=== PATIENT | male | born 1990 | race African-American/Black ===

== ENCOUNTER 2017-06-25 09:55 | Emergency (ER) | payer SELFPAY ==
[2017-06-25 10:03] VITALS: BP 127/78
[2017-06-25] MEDS ORDERED: KETOROLAC TROMETHAMINE 60 MG/2 ML SDV IM ONE (12:07)
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
--- NOTE | 2017-06-25 13:10 | RADIOLOGY REPORT (SQ) ---
EXAM DESCRIPTION: L SPINE WHOLE COMPLETED DATE/TIME: 06/25/2017 12:38 pm REASON FOR STUDY: low back pain x 1 week COMPARISON: None. NUMBER OF VIEWS: Five views including obliques. TECHNIQUE: AP, lateral, oblique, and sacral radiographic images acquired of the lumbar spine. LIMITATIONS: None. FINDINGS: MINERALIZATION: Normal. SEGMENTATION: Normal. No transitional anatomy. ALIGNMENT: Normal. VERTEBRAE: Maintained height. No fracture or worrisome bone lesion. DISCS: Preserved height. No significant osteophytes or end plate irregularity. POSTERIOR ELEMENTS: Bilateral facet arthropathy at L4-5 and L5-S1. No pars defects HARDWARE: None in the spine. PARASPINAL SOFT TISSUES: Normal. PELVIS: Intact as visualized. No fractures or worrisome bone lesions. SI joints intact. OTHER: No other significant finding. IMPRESSION: Mild lower lumbar facet arthropathy. TECHNICAL DOCUMENTATION: JOB ID: [id number] [employer]- All Rights Reserved Reading location - IP/workstation name: [email or web address]
== END 2017-06-25 12:53 | disposition left against medical advice (07) ==
LOC: ER 09:55
DX: J06.9 Acute upper respiratory infection, unspecified (principal); B97.89 Other viral agents as the cause of diseases classified elsewhere; M12.9 Arthropathy, unspecified; M54.5 Low back pain; R05 Cough; R51 Headache; J34.89 Other specified disorders of nose and nasal sinuses; F17.200 Nicotine dependence, unspecified, uncomplicated
CPT/HCPCS: 99283; 96372; 72110; J1885

== ENCOUNTER 2017-09-28 03:50 | Emergency (ER) | payer SELFPAY ==
[2017-09-28] MEDS ORDERED: LIDOCAINE 1%/EPINEPHRINE INJ 20 ML VIAL INJ ONE (04:03)
[2017-09-28] MEDS ORDERED: DIPH/PERTUSS(ACELL)/TETANUS VAC/PF 0.5 ML SYR (>=10YO) IM ONE (04:06)
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
== END 2017-09-28 05:29 | disposition home or self-care (01) ==
LOC: ER 03:50
PROC: 0HQDXZZ Repair Right Lower Arm Skin, External Approach (ICD-10-PCS; principal; 2017-09-28)
PROC: 0HQBXZZ Repair Right Upper Arm Skin, External Approach (ICD-10-PCS; 2017-09-28)
DX: S41.111A Laceration without foreign body of right upper arm, initial encounter (principal); W26.0XXA Contact with knife, initial encounter
CPT/HCPCS: 99283

== ENCOUNTER 2017-10-28 07:59 | Emergency (ER) | payer SELFPAY ==
[2017-10-28] MEDS ORDERED: LIDOCAINE 1% INJ-PF (10 MG/ML) 30 ML SDV INJ ONE (08:39)
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
[2017-10-28 09:43] VITALS: BP 102/53
== END 2017-10-28 09:59 | disposition home or self-care (01) ==
LOC: ER 07:59
PROC: 0HQ0XZZ Repair Scalp Skin, External Approach (ICD-10-PCS; principal; 2017-10-28)
DX: S01.01XA Laceration without foreign body of scalp, initial encounter (principal); X99.0XXA Assault by sharp glass, initial encounter
CPT/HCPCS: 99283; 70450; 70486; 72125; 12002; J3490

== ENCOUNTER 2017-11-09 11:39 | Emergency (ER) | payer SELFPAY ==
[2017-11-09 11:56] VITALS: BP 117/73
== END 2017-11-09 12:40 | disposition left against medical advice (07) ==
LOC: ER 11:39
DX: Z53.21 Procedure and treatment not carried out due to patient leaving prior to being seen by health care provider (principal)

== ENCOUNTER 2017-11-10 10:45 | Emergency (ER) | payer SELFPAY ==
[2017-11-10 10:52] VITALS: BP 126/71
--- NOTE | 2017-11-10 11:15 | ER Document Report ---
HPI - HPI Patient complains to provider of: staple removal Onset: Other - 2 wk Onset/Duration: Better Quality of pain: No pain Pain Level: Denies Context: Patient had 5 clair placed on 10/28/2017. Patient is here for staple removal today. Patient denies any problems with his scalp laceration. Exacerbated by: Denies Relieved by: Denies Similar symptoms previously: No Recently seen / treated by doctor: Yes - ROS ROS below otherwise negative: Yes Systems Reviewed and Negative: Yes All other systems reviewed and negative - GASTROINTESTINAL Gastrointestinal: DENIES: Nausea - DERM Skin Color: Normal Skin Problems: Laceration Past Medical History - General Information source: Patient - Social History Smoking Status: Current Every Day Smoker Smoking Education Provided: Yes Frequency of alcohol use: None Drug Abuse: None Occupation: Car detailing Family History: Reviewed & Not Pertinent - Medical History Medical History: Negative Renal/ Medical History: Denies: Hx Peritoneal Dialysis Past Surgical History: Reports: Hx Abdominal Surgery - hernia operation, Hx Appendectomy - Immunizations Hx Diphtheria, Pertussis, Tetanus Vaccination: - unknown Vertical Provider Document - CONSTITUTIONAL Agree With Documented VS: Yes Exam Limitations: No Limitations General Appearance: WD/WN, No Apparent Distress - INFECTION CONTROL TRAVEL OUTSIDE OF THE [place] IN LAST 30 DAYS: No - HEENT HEENT: Normocephalic Notes: Intact clair to anterior scalp area, wound edges approximated - NECK Neck: Normal Inspection - RESPIRATORY Respiratory: No Respiratory Distress - MUSCULOSKELETAL/EXTREMETIES Musculoskeletal/Extremeties: MAEW - NEURO Level of Consciousness: Awake, Alert, Appropriate Motor/Sensory: No Motor Deficit - DERM Integumentary: Warm, Dry, Laceration - Stapled laceration to anterior scalp area Course - Vital Signs Vital signs: Temp Pulse Resp BP Pulse Ox 97.9 F 80 18 126/71 H 100 11/10/17 10:51 11/10/17 10:51 11/10/17 10:51 11/10/17 10:51 11/10/17 10:51 Discharge - Discharge Clinical Impression: Removal of clair Condition: Stable Disposition: HOME, SELF-CARE Instructions: Staple Removal ([facility]) Forms: Smoking Cessation Education, Return to Work Referrals: [facility] [Provider Group] - Follow up as needed
== END 2017-11-10 11:24 | disposition home or self-care (01) ==
LOC: ER 10:45
DX: S01.01XD Laceration without foreign body of scalp, subsequent encounter (principal); X58.XXXD Exposure to other specified factors, subsequent encounter; F17.200 Nicotine dependence, unspecified, uncomplicated

== ENCOUNTER 2018-02-20 08:25 | Emergency (ER) | payer SELFPAY ==
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
[2018-02-20] MEDS ORDERED: BUPIVACAINE HCL 0.5 % INJ/PF 30 ML SDV INJ ONE (10:15)
[2018-02-20] MEDS ORDERED: LIDOCAINE 1% INJ (10 MG/ML) 10 ML MDV INJ ONE (10:15)
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
[2018-02-20 11:39] VITALS: BP 125/65
== END 2018-02-20 11:39 | disposition home or self-care (01) ==
LOC: ER 08:25
PROC: 0CQ0XZZ Repair Upper Lip, External Approach (ICD-10-PCS; principal; 2018-02-20)
DX: S01.511A Laceration without foreign body of lip, initial encounter (principal); S01.512A Laceration without foreign body of oral cavity, initial encounter; Y04.0XXA Assault by unarmed brawl or fight, initial encounter; Y92.89 Other specified places as the place of occurrence of the external cause; F17.210 Nicotine dependence, cigarettes, uncomplicated
CPT/HCPCS: 99283; 12052; J3490

== ENCOUNTER 2018-02-25 09:19 | Emergency (ER) | payer SELFPAY ==
[2018-02-25 09:26] VITALS: BP 100/61
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
== END 2018-02-25 10:08 | disposition home or self-care (01) ==
LOC: ER 09:19
DX: S01.511D Laceration without foreign body of lip, subsequent encounter (principal); Y09 Assault by unspecified means; F17.200 Nicotine dependence, unspecified, uncomplicated

== ENCOUNTER 2018-04-10 05:29 | Emergency (ER) | payer SELFPAY ==
--- NOTE | 2018-04-10 07:10 | ER Document Report ---
ED Cardiac - General Chief Complaint: Chest Wall Pain Stated Complaint: CHEST TIGHTNESS Time Seen by Provider: 04/10/18 06:07 Notes: 27-year-old male presents to the emergency part complaining of some left-sided chest discomfort. He states is worse when he moves or touches the left side of his chest. States he just started working out for a New Year's resolution. He began noticing the pain on the left side of his sternum. Denies any fever chills or cough. States he does smoke cigarettes and marijuana pretty heavily. He denies black bloody or tarry stools denies falls or trauma. States to be doing a lot of pull-ups lately. Denies any history of blood clots. Denies shortness of breath. Denies diaphoresis denies nausea. Other than marijuana denies any cocaine abuse. The patient describes the pain as sharp and severe when he moves but at rest it is negligible TRAVEL OUTSIDE OF THE [place] IN LAST 30 DAYS: No - Related Data Allergies/Adverse Reactions: No Known Allergies Allergy (Verified 02/25/18 09:20) Past Medical History - Social History Smoking Status: Current Every Day Smoker Frequency of alcohol use: None Family History: Reviewed & Not Pertinent Patient has suicidal ideation: No Patient has homicidal ideation: No Renal/ Medical History: Denies: Hx Peritoneal Dialysis Past Surgical History: Reports: Hx Abdominal Surgery - hernia operation, Hx Appendectomy - Immunizations Hx Diphtheria, Pertussis, Tetanus Vaccination: - unknown Review of Systems - Review of Systems Constitutional: denies: Chills, Fever Cardiovascular: denies: Chest pain, Palpitations, Heart racing, Orthopnea, Dyspnea, Edema Respiratory: Hurts to breathe. denies: Cough, Short of breath Gastrointestinal: denies: Nausea -: Yes All other systems reviewed and negative Physical Exam - Vital signs Vitals: Temp Pulse Resp BP Pulse Ox 98.4 F 79 20 125/55 L 99 04/10/18 05:33 04/10/18 05:33 04/10/18 05:33 04/10/18 05:33 04/10/18 05:33 - Notes Notes: GENERAL_APPEARANCE: well_nourished, alert, cooperative VITALS: reviewed, see vital signs table. HEAD: no_swelling\tenderness on the head. EYES: conjunctiva_clear. NOSE: no_nasal_discharge. MOUTH: (-)decreased moisture. THROAT: no_tonsilar_inflammation, no_airway_obstruction. no_lymphadenopathy NECK: supple, no_neck_tenderness, (-)thyromegaly. BACK: no_back_tenderness. CHEST_WALL: Left parasternal tenderness consistent with costochondritis LUNGS: no_wheezing, no_rales, no_rhonchi, (-)accessory muscle use, good air exchange bilateral. HEART: normal_rate, normal_rhythm, normal_S1, normal_S2, (-)S3, (-)S4, no_murmur, no_rub. ABDOMEN: normal_BS, soft, no_abd_tenderness, (-)guarding, (-)rebound, no_organomegaly, no_abd_masses. EXTREMITIES: strength 5/5 in all_extremities, good pulses in all_extremities, no_swelling\tenderness in the extremities, no_edema. SKIN: warm, dry, good_color, no_rash. MENTAL_STATUS: speech_clear, oriented_X_3, normal_affect, responds_appropriately to questions. Course - Re-evaluation Re-evalutation: 04/10/18 07:09 Patient presents with history and clinical findings consistent with costochondritis. My suspicion is low for pulmonary embolism he is not tachycardic tachypneic he does not have oxygen requirements. He is PERC negative. Risk for ACS is low. Patient has reproducible tenderness along the left chest wall. No crepitus no subcu emphysema chest x-ray and EKG were normal we will put him on some NSAIDs has been working out heavier due to the New Year's resolution. 04/10/18 08:46 EKG and chest x-ray are reassuring. My suspicion is that the patient has costochondritis especially due to the increase activity with working out for the new year. I will place him on NSAIDs for home. Work with him about smoking cessation. - Vital Signs Vital signs: Temp Pulse Resp BP Pulse Ox 98.4 F 79 17 130/100 H 100 04/10/18 05:33 04/10/18 05:33 04/10/18 06:01 04/10/18 06:01 04/10/18 06:01 - Diagnostic Test Radiology reviewed: Image reviewed Radiology results interpreted by me: 04/10/18 08:45 Chest X-Ray 04/10/18 06:32 IMPRESSION: NO ACUTE RADIOGRAPHIC FINDING IN THE CHEST. - EKG Interpretation by Me EKG shows normal: Sinus rhythm Rate: Normal Rhythm: NSR Additional EKG results interpreted by me: 04/10/18 08:12 Mild early repolarization no acute ST abnormalities noted Discharge - Discharge Clinical Impression: Costochondritis, acute Condition: Good Disposition: HOME, SELF-CARE Instructions: Anti-Inflammatory Medication ([facility]), Chest Wall Pain ([facility]), Costochondritis ([facility]) Prescriptions: Diclofenac Sodium [Voltaren] 75 mg PO BID PRN #20 tablet.dr LOZA Reason: Pain Scale Of 5
--- NOTE | 2018-04-10 08:02 | EKG REPORT ---
SEVERITY:- NORMAL ECG - SINUS RHYTHM ST ELEV, PROBABLE NORMAL EARLY REPOL PATTERN : Confirmed by: Gurmeet Estrada MD 10-Apr-2018 08:02:15
--- NOTE | 2018-04-10 08:32 | RADIOLOGY REPORT (SQ) ---
EXAM DESCRIPTION: CHEST 2 VIEWS COMPLETED DATE/TIME: 04/10/2018 8:15 am REASON FOR STUDY: chest pain COMPARISON: None. EXAM PARAMETERS: NUMBER OF VIEWS: two views TECHNIQUE: Digital Frontal and Lateral radiographic views of the chest acquired. RADIATION DOSE: NA LIMITATIONS: none FINDINGS: LUNGS AND PLEURA: No opacities, masses or pneumothorax. No pleural effusion. MEDIASTINUM AND HILAR STRUCTURES: No masses or contour abnormalities. HEART AND VASCULAR STRUCTURES: Heart normal size. No evidence for failure. BONES: No acute findings. HARDWARE: None in the chest. OTHER: No other significant finding. IMPRESSION: NO ACUTE RADIOGRAPHIC FINDING IN THE CHEST. TECHNICAL DOCUMENTATION: JOB ID: [id number] [employer]- All Rights Reserved Reading location - IP/workstation name: [facility] [email or web address]
[2018-04-10 09:05] VITALS: BP 107/87
== END 2018-04-10 09:04 | disposition home or self-care (01) ==
LOC: ER 05:29
DX: M94.0 Chondrocostal junction syndrome [Tietze] (principal); R07.89 Other chest pain; F17.210 Nicotine dependence, cigarettes, uncomplicated
CPT/HCPCS: 71046; 93005; 93010; 99284

== ENCOUNTER 2018-06-21 12:52 | Emergency (ER) | payer SELFPAY ==
[2018-06-21] MEDS ORDERED: NORMAL SALINE 1000 ML 1,000 ML IV PRN (13:43)
[2018-06-21] MEDS ORDERED: ONDANSETRON HCL INJ/PF 4 MG/2 ML SDV IV ONE (13:44)
--- NOTE | 2018-06-21 13:45 | ER Document Report ---
ED Medical Screen (RME) - General Chief Complaint: Vomiting Stated Complaint: VOMITING Time Seen by Provider: 06/21/18 13:40 TRAVEL OUTSIDE OF THE [place] IN LAST 30 DAYS: No - HPI Notes: 06/21/18 13:44 Patient states drinks every other day coming in after throwing up small amount of blood. Patient states he was initially dry heaving and then later started throwing up blood. Patient otherwise looks to be in no obvious distress upon my evaluation states he did drink more alcohol last night he normally does. - Related Data Allergies/Adverse Reactions: No Known Allergies Allergy (Verified 06/21/18 12:53) Past Medical History Renal/ Medical History: Denies: Hx Peritoneal Dialysis Past Surgical History: Reports: Hx Abdominal Surgery - hernia operation, Hx Appendectomy - Immunizations Hx Diphtheria, Pertussis, Tetanus Vaccination: - unknown Review of Systems - Review of Systems Gastrointestinal: Vomiting Physical Exam - Vital signs Vitals: Temp Pulse Resp BP Pulse Ox 98.3 F 72 16 125/64 99 06/21/18 13:07 06/21/18 13:07 06/21/18 13:07 06/21/18 13:07 06/21/18 13:07 - Abdominal Inspection: Normal Distension: No distension Bowel sounds: Normal Tenderness: Nontender Organomegaly: No organomegaly Course - Re-evaluation Re-evalutation: 06/21/18 13:44 We will check CBC basic laboratory studies hydrate the patient will give Protonix patient otherwise looks stable - Vital Signs Vital signs: Temp Pulse Resp BP Pulse Ox 98.3 F 72 16 125/64 99 06/21/18 13:07 06/21/18 13:07 06/21/18 13:07 06/21/18 13:07 06/21/18 13:07
[2018-06-21 14:33] LABS: ABSOLUTE LYMPHOCYTES (AUTO) 1.6 10^3/uL (0.5-4.7); ABSOLUTE MONOCYTES (AUTO) 0.4 10^3/uL (0.1-1.4); ABSOLUTE NEUT (AUTO) 11.9 10^3/uL (1.7-8.2); BASOPHILS % (AUTO) 0.1 % (0-2); EOSINOPHILS % (AUTO) 0.1 % (0-6); HEMATOCRIT 47.4 % (37.9-51.0); HEMOGLOBIN 15.7 g/dL (13.5-17.0); LYMPHOCYTES % (AUTO) 11.8 % (13-45); MEAN CORPUSCULAR HEMOGLOBIN 26.6 pg (27.0-33.4); MEAN CORPUSCULAR HGB CONC 33.1 g/dL (32.0-36.0); MEAN CORPUSCULAR VOLUME 81 fl (80-97); MONOCYTES % (AUTO) 2.5 % (3-13); PLATELET COUNT 139 10^3/uL (150-450); RED BLOOD COUNT 5.89 10^6/uL (4.35-5.55); RED CELL DISTRIBUTION WIDTH 15.6 % (11.5-14.0); SEGMENTED NEUTROPHILS % (AUTO) 85.5 % (42-78); TOTAL CELLS COUNTED % (AUTO) 100 %; WHITE BLOOD COUNT 13.9 10^3/uL (4.0-10.5)
[2018-06-21 14:47] LABS: ALANINE AMINOTRANSFERASE 53 U/L (21-72); ALBUMIN 5.1 g/dL (3.5-5.0); ALCOHOL 28 mg/dL (NONE DETECTED); ALKALINE PHOSPHATASE 102 U/L (38-126); ANION GAP 19 (5-19); ASPARTATE AMINO TRANSFERASE 61 U/L (17-59); BILIRUBIN,DIRECT 0.2 mg/dL (0.0-0.4); BILIRUBIN,TOTAL 0.5 mg/dL (0.2-1.3); BLOOD UREA NITROGEN 16 mg/dL (7-20); CALCIUM 10.1 mg/dL (8.4-10.2); CARBON DIOXIDE 23 mmol/L (22-30); CHLORIDE 101 mmol/L (98-107); GLUCOSE 76 mg/dL (75-110); LIPASE 162.6 U/L (23-300); SODIUM 143.2 mmol/L (137-145); TOTAL PROTEIN 9.1 g/dL (6.3-8.2)
--- NOTE | 2018-06-21 14:58 | ER Document Report ---
ED General - General Chief Complaint: Vomiting Stated Complaint: VOMITING Time Seen by Provider: 06/21/18 13:40 Notes: 27-year-old male with no past medical history presents for blood in his vomit. Patient states drinks Suhail most days and was having retching vomiting this morning, then was dry heaving and brought up a small amount of blood. Patient states he was drinking more last night than he usually does. Patient denies fevers, denies headache, denies dizziness or lightheadedness, complains of nausea, vomiting, abdominal pain. Denies shortness of breath or chest pain. Denies any referred shoulder pain or tearing type pain. Denies any diarrhea. No other complaints TRAVEL OUTSIDE OF THE [place] IN LAST 30 DAYS: No - Related Data Allergies/Adverse Reactions: No Known Allergies Allergy (Verified 06/21/18 12:53) Past Medical History - Social History Smoking Status: Current Every Day Smoker Family History: Reviewed & Not Pertinent Patient has suicidal ideation: No Patient has homicidal ideation: No Renal/ Medical History: Denies: Hx Peritoneal Dialysis Past Surgical History: Reports: Hx Abdominal Surgery - hernia operation, Hx Appendectomy - Immunizations Hx Diphtheria, Pertussis, Tetanus Vaccination: - unknown Review of Systems - Review of Systems Constitutional: See HPI EENT: No symptoms reported Cardiovascular: See HPI Respiratory: See HPI Gastrointestinal: See HPI Genitourinary: No symptoms reported Male Genitourinary: No symptoms reported Musculoskeletal: No symptoms reported Skin: No symptoms reported Hematologic/Lymphatic: No symptoms reported Neurological/Psychological: See HPI Physical Exam - Vital signs Vitals: Temp Pulse Resp BP Pulse Ox 98.3 F 72 16 125/64 99 06/21/18 13:07 06/21/18 13:07 06/21/18 13:07 06/21/18 13:07 06/21/18 13:07 - Notes Notes: PHYSICAL EXAMINATION: Reviewed vital signs and charting by RN GENERAL: Alert, interacts well. No acute distress. HEAD: Normocephalic, atraumatic. EYES: Pupils equal, round. Extraocular movements intact. ENT: Oral mucosa moist. NECK: Full range of motion. Supple. Trachea midline. LUNGS: Clear to auscultation bilaterally, no wheezes, rales, or rhonchi. No respiratory distress. HEART: Regular rate and rhythm. No murmur ABDOMEN: soft, non-tender. Mild epigastric tenderness to palpation. Bowel sounds present in all 4 quadrants. no McBurney's point tenderness, no Aguiar sign. EXTREMITIES: Moves all 4 extremities spontaneously. No edema, No cyanosis. NEUROLOGICAL: Normal speech. PSYCH: Normal affect, normal mood. SKIN: Warm, dry, normal turgor. No rashes or lesions noted. Course - Re-evaluation Re-evalutation: 06/21/18 14:57 Overall appears well. No evidence of subcutaneous emphysema, dysphonia, dysphagia or neck pain. I do not suspect Boerhaave syndrome at all. 06/21/18 15:31 Patient received 1 L bolus normal healing states he feels much much better. We will p.o. challenge him prior to discharge. Labs resulted and all within normal limits. Patient is not anemic. No gross liver abnormalities. 06/21/18 15:38 Talk to patient discussed probable cause of his blood in his vomit. I explained to him that is most likely from minor trauma due to retching. Patient wishes to go home and is tolerating p.o. challenge right now. He is stable and safe to discharge home. 06/22/18 00:24 - Vital Signs Vital signs: Temp Pulse Resp BP Pulse Ox 98.2 F 85 15 133/77 H 97 06/21/18 16:05 06/21/18 16:05 06/21/18 16:05 06/21/18 16:05 06/21/18 16:05 - Laboratory Result Diagrams: 06/21/18 14:00 06/21/18 14:00 Laboratory results interpreted by me: 06/21/18 06/21/18 14:00 14:00 WBC 13.9 H RBC 5.89 H MCH 26.6 L RDW 15.6 H Plt Count 139 L Seg Neutrophils % 85.5 H Lymphocytes % 11.8 L Monocytes % 2.5 L Absolute Neutrophils 11.9 H AST 61 H Total Protein 9.1 H Albumin 5.1 H Discharge - Discharge Clinical Impression: Nausea & vomiting Qualifiers: Vomiting type: unspecified Vomiting Intractability: non-intractable Qualified Code(s): R11.2 - Nausea with vomiting, unspecified Condition: Good Disposition: HOME, SELF-CARE Instructions: Antinausea Medication ([facility]), Vomiting ([facility]) Additional Instructions: You have been seen in the Emergency Department (ED) today for nausea and vomiting. Your work up today has not shown a dangerous condition which would result in staying in the hospital. You have been prescribed Zofran; please use as prescribed as needed for your nausea. Follow up with your doctor as soon as possible regarding today's emergent visit and your symptoms of nausea. Return to the Emergency Department (ED) if you develop abdominal pain, bloody vomiting, bloody diarrhea, if you are unable to tolerate fluids due to vomiting, or if you develop other symptoms that concern you.
[2018-06-21 16:07] VITALS: BP 133/77
== END 2018-06-21 16:05 | disposition home or self-care (01) ==
LOC: ER 12:52
DX: R11.2 Nausea with vomiting, unspecified (principal); F17.200 Nicotine dependence, unspecified, uncomplicated
CPT/HCPCS: 99284; 96361; 96374; 36415; 80307; 83690; 85025; 80053; J2405; J7030

== ENCOUNTER 2019-08-03 19:04 | Emergency (ER) | payer SELFPAY ==
--- NOTE | 2019-08-03 19:42 | ER Document Report ---
ED Burn/Smoke/Toxic Fumes - General Mode of Arrival: Ambulatory Information source: Patient TRAVEL OUTSIDE OF THE [place] IN LAST 30 DAYS: No - HPI Patient complains to provider of: Burn Onset: Last week Where: Home, Indoors Quality of pain: Achy Severity: Moderate Pain Level: 2 Context: Hot liquid - Agrees Associated Symptoms: None Other injuries: Foot - Left foot - General Chief Complaint: Burn Stated Complaint: LEFT FOOT BURN Time Seen by Provider: 08/03/19 19:37 - Related Data Allergies/Adverse Reactions: No Known Allergies Allergy (Verified 06/21/18 12:53) Past Medical History - General Information source: Patient - Social History Smoking Status: Current Every Day Smoker Cigarette use (# per day): Yes - Pack per day Smoking Education Provided: Yes - 4 minutes Frequency of alcohol use: Social Drug Abuse: Marijuana Lives with: Alone Family History: Reviewed & Not Pertinent Patient has suicidal ideation: No Patient has homicidal ideation: No - Past Medical History Cardiac Medical History: Reports: None Pulmonary Medical History: Reports: None EENT Medical History: Reports: None Neurological Medical History: Reports: None Endocrine Medical History: Reports: None Renal/ Medical History: Reports: None Malignancy Medical History: Reports None GI Medical History: Reports: None Musculoskeletal Medical History: Reports None Skin Medical History: Reports None Psychiatric Medical History: Reports: None Traumatic Medical History: Reports: None Infectious Medical History: Reports: None Past Surgical History: Reports: Hx Abdominal Surgery - hernia operation, Hx Appendectomy - Immunizations Hx Diphtheria, Pertussis, Tetanus Vaccination: - unknown Physical Exam - Vital signs Vitals: Temp Pulse Resp BP Pulse Ox 98.5 F 85 16 118/85 97 08/03/19 19:08 08/03/19 19:08 08/03/19 19:08 08/03/19 19:08 08/03/19 19:08 Course - Vital Signs Vital signs: Temp Pulse Resp BP Pulse Ox 98.5 F 85 16 118/85 97 08/03/19 19:31 08/03/19 19:08 08/03/19 19:08 08/03/19 19:08 08/03/19 19:08
--- NOTE | 2019-08-03 19:48 | ER Document Report ---
ED Medical Screen (RME) - General Chief Complaint: Burn Stated Complaint: LEFT FOOT BURN Time Seen by Provider: 08/03/19 19:37 Mode of Arrival: Ambulatory Notes: 28-year-old male presented to ED for complaint of yo to the left foot and toes about a week ago. He states he stopped hot grease on his foot and he has been treating it by cleaning it in the bathtub putting A&E ointment Neosporin and aloe gel. He states his been using peroxide more every day. He states when he tries to walk is a level 2 out of 5 but when he is just sitting he has no pain at all. He states the first couple days it was very painful but now is not as bad. He states he does have a history of an appendectomy and a left inguinal hernia repair. I have greeted and performed a rapid initial assessment of this patient. A comprehensive ED assessment and evaluation of the patient, analysis of test results and completion of medical decision making process will be conducted by an additional ED providers. TRAVEL OUTSIDE OF THE [place] IN LAST 30 DAYS: No - Related Data Allergies/Adverse Reactions: No Known Allergies Allergy (Verified 06/21/18 12:53) Past Medical History - Social History Cigarette use (# per day): Yes - Pack per day Chew tobacco use (# tins/day): No Frequency of alcohol use: Social Drug Abuse: Marijuana - Past Medical History Cardiac Medical History: Reports: None Pulmonary Medical History: Reports: None EENT Medical History: Reports: None Neurological Medical History: Reports: None Endocrine Medical History: Reports: None Renal/ Medical History: Reports: None. Denies: Hx Peritoneal Dialysis Malignancy Medical History: Reports None GI Medical History: Reports: None Musculoskeltal Medical History: Reports None Skin Medical History: Reports None Psychiatric Medical History: Reports: None Traumatic Medical History: Reports: None Infectious Medical History: Reports: None Past Surgical History: Reports: Hx Abdominal Surgery - hernia operation, Hx Appendectomy - Immunizations Hx Diphtheria, Pertussis, Tetanus Vaccination: - unknown Physical Exam - Vital signs Vitals: Temp Pulse Resp BP Pulse Ox 98.5 F 85 16 118/85 97 08/03/19 19:08 08/03/19 19:08 08/03/19 19:08 08/03/19 19:08 08/03/19 19:08 Course - Vital Signs Vital signs: Temp Pulse Resp BP Pulse Ox 98.5 F 85 16 118/85 97 08/03/19 19:31 08/03/19 19:08 08/03/19 19:08 08/03/19 19:08 08/03/19 19:08
[2019-08-03] MEDS ORDERED: CLINDAMYCIN HCL 150 MG CAPSULE PO ONE (19:49)
[2019-08-03] MEDS ORDERED: LIDOCAINE 1% INJ-PF (10 MG/ML) 30 ML SDV INJ ONE (19:49)
[2019-08-03] MEDS ORDERED: CEFTRIAXONE INJ 1000 MG VIAL IM ONE (19:49)
--- NOTE | 2019-08-03 19:55 | ER Document Report ---
ED Burn/Smoke/Toxic Fumes - General Chief Complaint: Burn Stated Complaint: LEFT FOOT BURN Time Seen by Provider: 08/03/19 19:37 Mode of Arrival: Ambulatory Notes: triage note Pt reports a week ago cooking and hot grease fell on his left foot without having socks or shoes on. States he has been soaking it in the bath tub daily and putting aloe cream on it. Reports some pain to left foot while walking, rated 2/5. States initially, he was unable to walk on it. 3rd degree yo noted across all 5 toes and 2nd degree to left lower extremity. Pt denies pain while sitting. Ann notes 28-year-old male presented to ED for complaint of yo to the left foot and toes about a week ago. He states he stopped hot grease on his foot and he has been treating it by cleaning it in the bathtub putting A&E ointment Neosporin and aloe gel. He states his been using peroxide more every day. He states when he tries to walk is a level 2 out of 5 but when he is just sitting he has no pain at all. He states the first couple days it was very painful but now is not as bad. He states he does have a history of an jaison endectomy and a left inguinal hernia repair. my notes 28-year-old black male arrives with healing second and third-degree yo to left dorsal foot and ankle after he dropped some hot grease on his bare skin of his left ankle and left foot 1 week ago. He has been applying Neosporin and aloe gel to the yo . We advised him to return if he develops pus from the wounds, spreading redness from the areas, worsening pain, or any other symptoms that are worrisome to him. Please follow-up with your primary care doctor in the next 1-2 days. As well as cleansing the wound with peroxide daily. He reports his pain is 2 out of 5 on walking. TRAVEL OUTSIDE OF THE [place] IN LAST 30 DAYS: No - HPI Patient complains to provider of: Burn Onset: Other - 1 week Where: Home Quality of pain: Achy - Great Severity: Severe Pain Level: 3 Context: Hot liquid Associated Symptoms: None Other injuries: LLE - Related Data Allergies/Adverse Reactions: No Known Allergies Allergy (Verified 06/21/18 12:53) Past Medical History - General Information source: Patient - Social History Smoking Status: Current Every Day Smoker Cigarette use (# per day): Yes - Pack per day Chew tobacco use (# tins/day): No Smoking Education Provided: Yes Frequency of alcohol use: Social Drug Abuse: Marijuana Family History: Reviewed & Not Pertinent Patient has suicidal ideation: No Patient has homicidal ideation: No - Past Medical History Cardiac Medical History: Reports: None Pulmonary Medical History: Reports: None EENT Medical History: Reports: None Neurological Medical History: Reports: None Endocrine Medical History: Reports: None Renal/ Medical History: Reports: None. Denies: Hx Peritoneal Dialysis Malignancy Medical History: Reports None GI Medical History: Reports: None Musculoskeletal Medical History: Reports None Skin Medical History: Reports None Psychiatric Medical History: Reports: None Traumatic Medical History: Reports: None Infectious Medical History: Reports: None Past Surgical History: Reports: Hx Abdominal Surgery - hernia operation, Hx Appendectomy - Immunizations Hx Diphtheria, Pertussis, Tetanus Vaccination: - unknown Review of Systems - Review of Systems Constitutional: No symptoms reported EENT: No symptoms reported Cardiovascular: No symptoms reported Respiratory: No symptoms reported Gastrointestinal: No symptoms reported Genitourinary: No symptoms reported Male Genitourinary: No symptoms reported Musculoskeletal: No symptoms reported Skin: No symptoms reported Hematologic/Lymphatic: No symptoms reported Neurological/Psychological: No symptoms reported Physical Exam - Vital signs Vitals: Temp Pulse Resp BP Pulse Ox 98.5 F 85 16 118/85 97 08/03/19 19:08 08/03/19 19:08 08/03/19 19:08 08/03/19 19:08 08/03/19 19:08 - General General appearance: Alert - HEENT Head: Normocephalic, Atraumatic Eyes: Normal Pupils: PERRL - Respiratory Respiratory status: No respiratory distress Chest status: Nontender Breath sounds: Normal Chest palpation: Normal - Cardiovascular Rhythm: Regular Heart sounds: Normal auscultation Murmur: No - Abdominal Inspection: Normal Distension: No distension Bowel sounds: Normal Tenderness: Nontender Organomegaly: No organomegaly - Back Back: Normal - Extremities General upper extremity: Normal inspection General lower extremity: Tender, Other - eroded skin over left dorsal foot and ankle 4% skin yo - Neurological Neuro grossly intact: Yes Cognition: Normal Orientation: AAOx4 [place] Coma Scale Eye Opening: Spontaneous [place] Coma Scale Verbal: Oriented [place] Coma Scale Motor: Obeys Commands Minh Coma Scale Total: 15 Speech: Normal Motor strength normal: LUE, RUE, LLE, RLE Sensory: Normal - Psychological Associated symptoms: Normal affect - Skin Skin Temperature: Warm Skin Moisture: Dry Skin Color: Normal Course - Vital Signs Vital signs: Temp Pulse Resp BP Pulse Ox 98.5 F 85 16 118/85 97 08/03/19 19:31 08/03/19 19:08 08/03/19 19:08 08/03/19 19:08 08/03/19 19:08 - Laboratory Result Diagrams: 08/03/19 20:40 08/03/19 20:40 Laboratory results interpreted by me: 08/03/19 20:40 Sodium 135.7 L - Diagnostic Test Radiology reviewed: Reports reviewed Critical Care Note - Critical Care Note Total time excluding time spent on procedures (mins): 60 Discharge - Discharge Clinical Impression: Yo of multiple specified sites Condition: Good Disposition: HOME, SELF-CARE Additional Instructions: Keep wound clean and apply bacitracin to affected wound on a daily basis. Follow-up with your personal doctor or with burn specialist in [place]. Try to avoid using your left foot by using crutches for least 1 more week. Return to ER if symptoms persist take medicines as directed Prescriptions: Sulfamethoxazole/Trimethoprim [Bactrim Ds Tablet] 1 each PO BID #10 tablet Cephalexin Monohydrate [Keflex 500 mg Capsule] 500 mg PO BID 5 Days #15 capsule Forms: Return to Work
[2019-08-03] MEDS ORDERED: SULFAMETHOXAZOLE/TRIMETHOPRIM 800-160 MG TABLET PO ONE (20:16)
--- NOTE | 2019-08-03 20:37 | RADIOLOGY REPORT (SQ) ---
EXAM DESCRIPTION: Left foot, three view series CLINICAL HISTORY: 28 years Male, yo cellulitis COMPARISON: None. FINDINGS: No suspicious bone joint or soft tissue abnormalities. IMPRESSION: Negative left foot series.
[2019-08-03 21:13] LABS: ALBUMIN 4.4 g/dL (3.5-5.0); ALKALINE PHOSPHATASE 66 U/L (38-126); ANION GAP 9 (5-19); ASPARTATE AMINO TRANSFERASE 33 U/L (17-59); BILIRUBIN,TOTAL 0.4 mg/dL (0.2-1.3); BLOOD UREA NITROGEN 9 mg/dL (7-20); CALCIUM 8.8 mg/dL (8.4-10.2); CARBON DIOXIDE 26 mmol/L (22-30); CHLORIDE 101 mmol/L (98-107); GLUCOSE 90 mg/dL (75-110); POTASSIUM 4.1 mmol/L (3.6-5.0); TOTAL PROTEIN 7.1 g/dL (6.3-8.2)
[2019-08-03 21:34] LABS: ABSOLUTE EOSINOPHILS # (AUTO) 0.3 10^3/uL (0.0-0.6); ABSOLUTE LYMPHOCYTES (AUTO) 2.7 10^3/uL (0.5-4.7); ABSOLUTE MONOCYTES (AUTO) 0.5 10^3/uL (0.1-1.4); ABSOLUTE NEUT (AUTO) 2.9 10^3/uL (1.7-8.2); BASOPHILS % (AUTO) 0.8 % (0-2); EOSINOPHILS % (AUTO) 5.3 % (0-6); HEMATOCRIT 42.3 % (37.9-51.0); HEMOGLOBIN 14.4 g/dL (13.5-17.0); LYMPHOCYTES % (AUTO) 41.6 % (13-45); MEAN CORPUSCULAR HEMOGLOBIN 27.3 pg (27.0-33.4); MEAN CORPUSCULAR HGB CONC 34.1 g/dL (32.0-36.0); MEAN CORPUSCULAR VOLUME 80 fl (80-97); MONOCYTES % (AUTO) 7.3 % (3-13); PLATELET COUNT 105 10^3/uL (150-450); RED BLOOD COUNT 5.28 10^6/uL (4.35-5.55); RED CELL DISTRIBUTION WIDTH 14.8 % (11.5-14.0); TOTAL CELLS COUNTED % (AUTO) 100 %; WHITE BLOOD COUNT 6.5 10^3/uL (4.0-10.5)
[2019-08-03 21:50] LABS: PLATELET COMMENT DECREASED; PLATELET GIANT PRESENT; PLATELET LARGE PRESENT
[2019-08-03 21:51] LABS: ANISOCYTOSIS SLIGHT
[2019-08-03 21:53] LABS: POLYCHROMASIA SLIGHT
[2019-08-03 21:54] LABS: TARGET CELLS SLIGHT
[2019-08-03 22:12] VITALS: BP 121/68
== END 2019-08-03 22:12 | disposition home or self-care (01) ==
LOC: ER 19:04
DX: T25.322A Burn of third degree of left foot, initial encounter (principal); T25.332A Burn of third degree of left toe(s) (nail), initial encounter; T24.202A Burn of second degree of unspecified site of left lower limb, except ankle and foot, initial encounter; T31.0 Burns involving less than 10% of body surface; X10.2XXA Contact with fats and cooking oils, initial encounter; Y93.G3 Activity, cooking and baking; Y92.009 Unspecified place in unspecified non-institutional (private) residence as the place of occurrence of the external cause; F17.210 Nicotine dependence, cigarettes, uncomplicated
CPT/HCPCS: 99285; 96372; 36415; 87040; 85025; 80053; 73630; J3490; J0696